=== PATIENT | female | born 1950 | race Hispanic/Latino ===

== ENCOUNTER 2017-05-04 13:23 | Outpatient (CLI) | payer MEDICARE ==
--- NOTE | 2017-05-04 13:51 | XRay Report ---
XRAY RIGHT SHOULDER THREE VIEWS: 05/04/17 13:23:00 CLINICAL: Right shoulder pain. FINDINGS: Normal glenohumeral alignment. Mild glenohumeral joint arthritis with a small inferior humeral osteophyte. Mild acromioclavicular joint arthritis. No fracture or dislocation. No bone lesion. Normal soft tissues. IMPRESSION: Mild arthritis.
== END 2017-05-04 13:24 | disposition home or self-care (01) ==
LOC: SPVIMAG 13:23
PROVIDERS: ATTEND Orthopaedic Surgery Sports Medicine
DX: M19.011 Primary osteoarthritis, right shoulder (principal)